=== PATIENT | female | born 1935 | race Caucasian/White ===

== ENCOUNTER 2022-04-20 13:02 | Outpatient (CLI) | payer MEDICARE, BC | END 2022-04-20 13:03 | disposition home or self-care (01) | LOC: CSHWCC 13:02 | PROVIDERS: ATTEND Preventive Medicine Undersea and Hyperbaric Medicine | DX: S51.802D Unspecified open wound of left forearm, subsequent encounter (principal); L89.512 Pressure ulcer of right ankle, stage 2 | CPT/HCPCS: 97139; G0463; 99204 ==

== ENCOUNTER 2022-05-04 08:33 | Outpatient (CLI) | payer MEDICARE, BC | END 2022-05-04 08:34 | disposition home or self-care (01) | LOC: CSHWCC 08:33 | PROVIDERS: ATTEND Preventive Medicine Undersea and Hyperbaric Medicine | DX: S51.802D Unspecified open wound of left forearm, subsequent encounter (principal); L89.512 Pressure ulcer of right ankle, stage 2 ==